=== PATIENT | female | born 1995 | race Caucasian/White ===

== ENCOUNTER 2022-12-18 05:35 | Inpatient (IN) | payer OTHER ==
[2022-12-18] MEDS ORDERED: LIDOCAINE 0.5% (PF) 5 MG/ML (50 ML SDV) SQ PRN (05:50)
[2022-12-18] MEDS ORDERED: OXYTOCIN 10 UNIT/ML 1 ML VIAL IM PRN (05:50)
[2022-12-18] MEDS ORDERED: METHYLERGONOVINE 0.2 MG/ML 1 ML AMP IM PRN (05:50)
[2022-12-18] MEDS ORDERED: miSOPROStoL 200 MCG TAB PO PRN (05:50)
[2022-12-18] MEDS ORDERED: CARBOPROST TROMETHAMINE 250 MCG/ML 1 ML AMP IM PRN (05:50)
[2022-12-18] MEDS ORDERED: TERBUTALINE 1 MG/ML VIAL SQ PRN (05:50)
[2022-12-18] MEDS ORDERED: TRANEXAMIC ACID IN NACL,ISO-OS 1,000 MG in EMPTY BAG 1 BAG IV PRN (05:50)
[2022-12-18 06:39] LABS: Basophils % (A) 0 %; Eosinophils % (A) 1 %; HCT 36.7 % (34.0-46.0); HGB 12.6 gm/dL (11.4-16.0); Lymphocytes # (A) 1.2 k/uL (1.0-4.8); Lymphocytes % (A) 14 %; MCH 30.7 pg (25.0-35.0); MCHC 34.2 g/dL (31.0-37.0); MCV 89.6 fL (80.0-100.0); Mean Platelet Volume 8.2; Monocytes # (A) 0.6 k/uL (0-1.0); Monocytes % (A) 7 %; Neutrophils # (A) 6.9 k/uL (1.3-7.7); Neutrophils % (A) 76 %; Platelet Count 204 k/uL (150-450); RDW 13.8 % (11.5-15.5); WBC 9.1 k/uL (3.8-10.6)
[2022-12-18] MEDS: LACTATED RINGERS 1,000 ML IV SCH ×3 (06:52→14:38)
[2022-12-18] MEDS: OXYTOCIN 30 UNITS/500 ML NS 30 UNIT in SALINE 1 500ML.BAG IV SCH ×2 (06:53→20:24)
--- NOTE | 2022-12-18 08:19 | P.HPOB ---
History of Present Illness H&P Date: 12/18/22 Chief Complaint: Here for induction of labor for LGA fetus, favorable cervix. This is a 27-year-old prima 1 para 0 EDC 12/25/2022 at 39 weeks gestation who presents with favorable cervix and large for gestational, greater than 90th percentile. Elevated KIMBERLY is also noted. Patient is counseled regarding the risk of shoulder dystocia with this type of estimated weight, however is choosing to proceed with induction of labor. Fetus is been active throughout the . She is having mild irregular spontaneous contractions. Past medical history is essentially negative. Past surgical history is also unremarkable. Current medications vitamins. ALLERGIES none known. Family history unremarkable. Social history patient is , she is employed at a flower shop in [place], has never been a smoker and denies alcohol or drug use. history is significant for blood type O-, broke and received. VDRL testing urine culture, hepatitis B surface antigen, HIV testing, group B strep cultures all negative. One-hour Glucola 106. On exam patient is 5 foot 6 inches, 230 pounds, blood pressure is normal at 121/71, vital signs are stable and she is afebrile. The general physical exam is within normal limits. Cervix is 4 cm dilated, 80% effaced, -2 station, vertex presentation. Artificial amniorrhexis reveals clear fluid. heart tones are consistent with reactive NST, baseline 1 40 bpm. Impression: Large for gestational age fetus with estimated weight over 98th percentile, patient declining option for primary section, well aware of the risks of shoulder dystocia and choosing trial of labor. Meconium- stained fluid. All signs otherwise reassuring. Plan: Continue oxytocin per protocol. Continue close maternal and surveillance. Analgesic options are reviewed. Anticipating normal spontaneous vaginal delivery. Review of Systems Constitutional: Reports as per HPI Past Medical History Past Medical History: No Reported History History of Any Multi-Drug Resistant Organisms: None Reported Past Surgical History: No Surgical Hx Reported Past Anesthesia/Blood Transfusion Reactions: No Reported Reaction Past Psychological History: No Psychological Hx Reported Smoking Status: Never smoker Past Drug Use History: None Reported Medications and Allergies Home Medications Medication Instructions Recorded Confirmed Type No Known Home Medications 12/18/22 12/18/22 History Allergies Allergy/AdvReac Type Severity Reaction Status Date / Time No Known Allergies Allergy Verified 12/18/22 05:49 Exam Vital Signs Temp Pulse Resp BP Pulse Ox 12/18/22 05:48 97.4 F L 122 H 16 121/71 98 Intake and Output 12/17/22 12/18/22 12/18/22 22:59 06:59 14:59 Other: Weight 104.326 kg See dictation under HPI please Results Result Diagrams: 12/18/22 06:10 Assessment and Plan Assessment: 39 week intrauterine , large for gestational age fetus, meconium- stained fluid, favorable cervix, patient choosing trial of labor understanding the risks of shoulder dystocia as thoroughly discussed Plan: Continue close maternal and surveillance. Oxytocin per hospital protocol. Analgesic options reviewed. Anticipate normal spontaneous vaginal delivery. Time with Patient: Less than 30
[2022-12-18] MEDS ORDERED: fentaNYL (PF) 50 MCG/ML 5 ML AMP ONE (12:14)
[2022-12-18] MEDS ORDERED: ROPIVACAINE 5 MG/ML 20 ML AMPULE ONE (12:14)
[2022-12-18] MEDS ORDERED: SODIUM CHLORIDE 0.9% 100 ML BAG ONE (12:14)
[2022-12-18] MEDS ORDERED: diphenhydrAMINE 50 MG CAP PO PRN (19:48)
[2022-12-18] MEDS ORDERED: diphenhydrAMINE 50 MG/ML 1 ML VIAL IVP PRN ×2 (19:48)
[2022-12-18] MEDS ORDERED: diphenhydrAMINE 25 MG CAP PO PRN (19:48)
[2022-12-18] MEDS ORDERED: diphenhydrAMINE ELIXIR 25 MG/10 ML CUP PO PRN (19:48)
[2022-12-18] MEDS ORDERED: LANOLIN CREAM 5 GM TUBE TOPICAL PRN (19:48)
[2022-12-18] MEDS ORDERED: SIMETHICONE 80 MG CHEWABLE PO PRN (19:48)
[2022-12-18] MEDS ORDERED: ZOLPIDEM 5 MG TAB PO PRN (19:48)
[2022-12-18] MEDS ORDERED: BENZOCAINE/MENTHOL SPRAY 1 GM/SPRAY AEROSOL TOPICAL PRN (19:48)
[2022-12-18] MEDS ORDERED: HYDROCORTISONE 2.5% RECTAL CREAM 30 GM TUBE RECTAL PRN (19:48)
--- NOTE | 2022-12-18 19:48 | P.PROBDLV ---
Vaginal Delivery Note - . Vaginal Delivery Note: This is a 27-year-old white female 1 para 0 EDC 12/25/2022 at 39 weeks gestation who presented today for induction for suspected large for gestational age fetus and elevated a half eye. [place]pee strep cultures negative, rubella status immune, blood type O negative. Please see dictated history and physical for details. Artificial amniorrhexis revealed meconium-stained fluid. Oxytocin was started and titrated per hospital protocol. Epidural was placed per her request. She became completely dilated at 1725 hrs. and began the second stage of labor at that time. heart tones remained reassuring with occasional variable decelerations. Patient progressed well through the first stage of labor and ultimately the perineal body was prepped and draped in usual sterile fashion. The 's head delivered occiput anterior and he restituted accordingly. There is a tight nuchal cord 1 that could not be reduced and therefore was doubly clamped and ligated. The left or anterior shoulder was delivered from underneath the pubic symphysis at which time the oropharynx, nasopharynx, and external nares were all bulb suctioned. Patient was officially delivered of a liveborn male infant at 1926 hrs. Umbilical cord was doubly clamped and ligated, he was handed to waiting brand marketing intern for evaluation where scores of 7 and 9 at one and 5 minutes respectively were given. The placenta delivered spontaneously, it was inspected and noted to be intact with dark meconium-stained, trivascular cord at 1930 hrs. Uterus is then massaged. Careful inspection of cervix, vagina, perineum, periurethral, and perirectal areas revealed a small first-degree perineal laceration easily repaired with a single figure of 8 suture of 3-0 rapide suture. Uterus is once again massaged, a large clot is expressed and therefore Methergine was given IM 1. Total estimated blood loss 400 mL's. Infant weighs 8 lbs. 9 oz. or 3880 g. He has a 14-3/4 inch head. He is doing well at the bedside and the parents are requesting circumcision further infant son.
[2022-12-18] MEDS: IBUPROFEN 600 MG TAB PO SCH (20:24)
[2022-12-18] MEDS: SENNOSIDES-DOCUSATE SODIUM 1 EACH TAB PO SCH (20:25)
[2022-12-19] MEDS ORDERED: Rhogam IMMUNE GLOBULIN 1,500 UNIT/1 ML IM ONE (01:10)
[2022-12-19] MEDS: ACETAMINOPHEN TAB 325 MG TAB PO PRN ×2 (01:11→07:44)
[2022-12-19] MEDS: IBUPROFEN 600 MG TAB PO SCH (03:47)
[2022-12-19] MEDS: SENNOSIDES-DOCUSATE SODIUM 1 EACH TAB PO SCH (07:44)
--- NOTE | 2022-12-19 08:01 | P.DS ---
Providers Date of admission: 12/18/22 05:35 Expected date of discharge: 12/19/22 Attending physician: Guerda Freitas Primary care physician: Stated None Hospital Course: This is a 27-year-old 1 para 0 EDC 12/25/2022 at 39 weeks gestation who presented for induction with favorable cervix, and large for gestational age infant, along with polyhydramnios. Blood type is O+, rubella status immune, group B strep cultures negative. Please see dictated history and physical for details. Artificial amniorrhexis revealed meconium-stained fluid. Epidural was placed. Oxytocin started and titrated per protocol. Patient went on to deliver vaginally a liveborn male with scores of 7 and 9 at one and 5 minutes respectively. There was a tight nuchal cord 1 could not be reduced, but was clamped and cut. weight 8 lbs. 9 oz. or 3880 g. Estimated blood loss 400 mL's. First-degree perineal laceration easily repaired. Please see my dictated delivery note for details. The patient and her infant are doing well. Patient is voiding, ambulating, passing flatus without difficulty. Vital signs are stable and she is afebrile. Fundus is firm and in the midline, symmetric and 18 week size. Extremities are negative for edema.Informed consent is reviewed signed witnessed and dated. Infant is placed on the circumcision board and secured properly. The perineal area is prepped and draped in usual sterile fashion. 1% lidocaine is used, 0.4 mL on either side for penile block. 1.3 cm Gomco clamp is used in the usual fashion. Tolerated well. Estimated blood loss 2 mL's. Complications none. Will be performed on this morning. Patient is breast-feeding and having no difficulties. She is judged to be in very good condition for discharge home. I have asked that she follow up with me in the office in 6 weeks. No intercourse, tampons or douching. To use [id number] Advil or Aleve, or Motrin as needed for pain. Call with any fevers shakes or chills, foul smelling or copious lochia, with the passage of large blood clots, with any pain not alleviated by [id number] products, or indeed with any concerns. We have briefly discussed contraception and we will discuss this further in the office in 2 weeks. Marshall will follow-up with shot man as per recommendations. Assessment: Doing well first day Patient Condition at Discharge: Good Plan - Discharge Summary Discharge Rx Participant: No New Discharge Prescriptions: No Action No Known Home Medications Discharge Medication List No Known Home Medications 12/18/22 [History] Follow up Appointment(s)/Referral(s): Guerda Freitas MD [STAFF PHYSICIAN] - 6 Weeks Discharge Disposition: HOME SELF-CARE
[2022-12-19 15:46] VITALS: BP 122/77; PULSE 99; RESP 20; TEMP 97.9
== END 2022-12-19 20:20 | disposition home or self-care (01) | DRG 807 ==
LOC: 4FBP 05:35
PROVIDERS: ADMIT Obstetrics & Gynecology; ATTEND Obstetrics & Gynecology
PROC: 10907ZC Drainage of Amniotic Fluid, Therapeutic from Products of Conception, Via Natural or Artificial Opening (ICD-10-PCS; principal; 2022-12-18)
PROC: 3E033VJ Introduction of Other Hormone into Peripheral Vein, Percutaneous Approach (ICD-10-PCS; principal; 2022-12-18)
PROC: 0HQ9XZZ Repair Perineum Skin, External Approach (ICD-10-PCS; principal; 2022-12-18)
PROC: 10E0XZZ Delivery of Products of Conception, External Approach (ICD-10-PCS; principal; 2022-12-18)
PROC: 3E0234Z Introduction of Serum, Toxoid and Vaccine into Muscle, Percutaneous Approach (ICD-10-PCS; 2022-12-19)
DX: O36.63X0 Maternal care for excessive fetal growth, third trimester, not applicable or unspecified (principal); O77.0 Labor and delivery complicated by meconium in amniotic fluid; O40.3XX0 Polyhydramnios, third trimester, not applicable or unspecified; O69.1XX0 Labor and delivery complicated by cord around neck, with compression, not applicable or unspecified; O76 Abnormality in fetal heart rate and rhythm complicating labor and delivery; O70.0 First degree perineal laceration during delivery; O26.893 Other specified pregnancy related conditions, third trimester; Z67.41 Type O blood, Rh negative; Z20.822 Contact with and (suspected) exposure to COVID-19; Z28.310 Unvaccinated for COVID-19; Z3A.39 39 weeks gestation of pregnancy; Z37.0 Single live birth
CPT/HCPCS: 85025; 85461; 86850; 86900; 86901; 87635

== ENCOUNTER 2024-10-22 18:50 | Outpatient (CLI) | payer OTHER ==
[2024-10-22 21:43] VITALS: BP 125/74; PULSE 142; RESP 16; TEMP 98.5
--- NOTE | 2024-11-13 12:36 | P.MSEPDOC ---
Presenting Problems - Arrival Data Date of Arrival on Unit: 10/22/24 Time of Arrival on Unit: 18:50 Mode of Transport: Ambulatory - Complaint OB-Reason for Admission/Chief Complaint: Decreased Movement Comment: Patient presents to triage for decreased movement for past 2 hours. Medical History - Information : 2 Para: 1 Term: 1 : 0 Abortions: Spontaneous or Elective: 0 Number of Living Children: 1 - Gestational Age Gestational Age by CHRISTIE (wks/days): 38 Weeks and 4 Days Review of Systems - Review of Systems Constitutional: No problems Breast: No problems ENT: No problems Cardiovascular: No problems Respiratory: No problems Gastrointestinal: No problems Genitourinary: No problems Musculoskeletal: No problems Neurological: No problems Skin: No problems Vital Signs - Temperature Temperature: 98.5 F Temperature Source: Oral - Pulse Pulse Oximetery Pulse Rate: 142 Pulse Assessment Method: Pulse Oximetry - Respirations Respiratory Rate: 16 Oxygen Delivery Method: Room Air O2 Sat by Pulse Oximetry: 99 - Blood Pressure Right Arm Blood Pressure: 125/74 Blood Pressure Mean: 91 Blood Pressure Source: Automatic Cuff Medical Screen Scoring - Assessment - Baby A Baseline FHR: 150 Heart Rate - NICHD Category: Category I (Normal) NST: Reactive Physician Notification - Physician Notified Physician Notified Date: 10/22/24 Physician Notified Time: 19:14 Physician: Karma Mauricio Order Received: Yes - Notification Comment Comment: At 1913, Dr. Mauricio on the phone for another pt. RN spoke with her regarding triage pt c/o DFM for the last two hours. Reported reactive NST, irritability contx pattern with pt stating she is not feeling contx but nery corral, vital signs WNL other than HR which is in the 140s and pt states she is feeling anxious, and pt's other child is sick with RSV and pt took tylenol cold and flu. Orders received to orally hydrate pt. If HR decreases, pt can be discharged home. If HR continues to be elevated, RN to order an EKG. Additionally, RN to educate pt to not take anymore tylenol cold and flu, and just to stick with regular tylenol. At 2010, RN spoke with Dr. Mauricio regarding pt's HR still elevated in the 110s-120s after two cups of water. Reported pt is feeling movement and states she is feeling a little better. Order received to obtain an EKG, if NSR or sinus tachycardia, pt can be discharged home. Maternal Triage Index - Maternal Triage Index Presenting for scheduled procedure w/no complaint: No - Stat/Priority 1 Stat Priority 1: No - Urgent/Priority 2 Urgent Priority 2: Yes Provider Notified: Karma Mauricio Provider Notified Time: 19:14 Criteria Met for Priority 2: c/o decreased movement Disposition - Disposition OB Disposition: Discharge to home, Written follow up instructions reviewed Discharge Date: 10/22/24 Discharge Time: 21:30 I agree with the RN Medical Screening Exam: Yes Physician's MSE Comment: I have neither seen nor examined the patient Case reviewed; plan agreed upon as documented in EMR&OBIX.: Yes Diagnosis: MATERNAL CARE FOR PROBLEM, UNSP, THIRD TRIMESTER, UNSP
== END 2024-10-22 21:30 | disposition home or self-care (01) ==
LOC: FBPOP 18:50
PROVIDERS: ATTEND Obstetrics & Gynecology
DX: O36.93X0 Maternal care for fetal problem, unspecified, third trimester, not applicable or unspecified (principal); Z3A.38 38 weeks gestation of pregnancy
CPT/HCPCS: 59025; 93005; 99213